=== PATIENT | female | born 1975 | race Hispanic/Latino ===

== ENCOUNTER 2020-11-15 08:19 | Emergency (ER) | payer OTHER, SELFPAY | END 2020-11-15 09:16 | disposition home or self-care (01) | LOC: NAV ERS 08:19 | DX: S61.212A Laceration without foreign body of right middle finger without damage to nail, initial encounter (principal); E78.5 Hyperlipidemia, unspecified; E78.00 Pure hypercholesterolemia, unspecified; Z79.899 Other long term (current) drug therapy; W27.8XXA Contact with other nonpowered hand tool, initial encounter | CPT/HCPCS: 12001 ==